=== PATIENT | female | born 1950 | race Hispanic/Latino ===

== ENCOUNTER → 2018-02-20 | Outpatient (CLI) | payer BC, OTHER ==
[~2018-02-20] MED LIST: ACET1TAB25 PO; CARV12.511 PO; FLUO-126 PO; GABA-531 PO; HYDR25TA PO; LOSA100T29 PO; LOVA10TA2 PO; METF500T6 PO; OXYB5TAB10 PO; PANT40TA25 PO
== END | disposition home or self-care (01) ==
LOC: RAH 15:52
PROVIDERS: ATTEND Family Medicine
DX: M47.897 Other spondylosis, lumbosacral region (principal)
CPT/HCPCS: 72100; 73522

== ENCOUNTER → 2023-05-17 | Outpatient (CLI) | payer OTHER ==
[~2023-05-17] MED LIST changes: +ACET-2079 PO; -ACET1TAB25 PO; -FLUO-126 PO; +FLUO20CA36 PO; -LOSA100T29 PO; +LOSA100T59 PO; +METF-444 PO; -METF500T6 PO; -OXYB5TAB10 PO; +OXYB5TAB15 PO; -PANT40TA25 PO; +PANT40TA54 PO
== END | disposition home or self-care (01) ==
LOC: RAH 09:11
PROVIDERS: ATTEND Family Medicine
DX: N28.89 Other specified disorders of kidney and ureter (principal); N17.9 Acute kidney failure, unspecified
CPT/HCPCS: 76770

== ENCOUNTER → 2025-09-13 | Outpatient (CLI) | payer OTHER ==
[~2025-09-13] MED LIST changes: +DIATR MEGLU/DIATRIZOATE SODIUM 30 ML BOTTLE ONE; +FLUO-418 PO; -FLUO20CA36 PO; -OXYB5TAB15 PO; +OXYB5TAB20 PO
--- NOTE | 2025-09-13 12:54 | HMCIMG ---
DOUBLE CONTRAST UPPER GI SERIES: Finding: The study was performed using provocative maneuvers After swallowing effervescent crystal and thick barium, there is no definite intrinsic or extrinsic lesion seen in the esophagus. There is grade 1 esophageal reflux. The stomach demonstrated partial gastrectomy with patent anastomosis to the jejunum.. The duodenal bulb, duodenal sweep, and upper jejunum appear to be normal. The small bowel follow-through demonstrated normal transit time in 45 minutes oral contrast his wrists the right colon and transverse colon. Fluoroscopy time: 0.6 minutes IMPRESSION: Status post gastrectomy with patent anastomosis. Grade 1 esophageal reflux Normal small bowel follow-through with normal transit time..
== END | disposition home or self-care (01) ==
LOC: RAH 08:49
PROVIDERS: ATTEND Internal Medicine Gastroenterology
DX: K21.9 Gastro-esophageal reflux disease without esophagitis (principal); R11.0 Nausea
CPT/HCPCS: 74240; Q9963